=== PATIENT | male | born 1990 | race American Indian/Alaskan Native ===

== ENCOUNTER 2019-02-22 16:13 | Emergency (ER) | payer SELFPAY ==
[2019-02-22 16:54] VITALS: BP 147/101
[2019-02-22 18:55] LABS: Bilirubin,Urine NEG (Negative); Blood,Urine NEG (Negative); Color,Urine Straw (Yellow); Protein,Urine <15 mg/dL mg/dL (Negative); Urobilinogen,Urine < 2.0 mg/dL (<2.0)
--- NOTE | 2019-02-22 20:50 | Emergency Department Report ---
ED Male HPI - General Chief complaint: Abdominal Pain Stated complaint: LT SIDE PAIN/POSSIBLE UTI Time Seen by Provider: 02/22/19 20:39 Source: patient Mode of arrival: Ambulatory Limitations: No Limitations - History of Present Illness Initial comments: 28-year-old male presents to ED for possible UTI. Patient states he has been taking alcohol more heavily over the last couple of months reports mild lower back pain, thinks he may have a UTI. Patient denies any abdominal pain, urinary frequency, dysuria or penile discharge. -: unknown Severity: mild Quality: aching Consistency: intermittent Improves with: none Worsens with: none denies: discharge, blood in urine, dysuria, fever, nausea/vomiting, incontinence - Related Data Previous Rx's Medication Instructions Recorded Last Taken Type Ibuprofen [Motrin] 600 mg PO Q8H PRN #60 tablet 09/25/14 Unknown Rx traMADoL [Ultram] 50 mg PO Q6HR PRN #20 tablet 09/25/14 Unknown Rx Naproxen [Naprosyn] 500 mg PO BID #20 tablet 02/22/19 Unknown Rx Allergies Allergy/AdvReac Type Severity Reaction Status Date / Time No Known Allergies Allergy Unverified 09/25/14 17:38 ED Review of Systems ROS: Stated complaint: LT SIDE PAIN/POSSIBLE UTI Other details as noted in HPI Comment: All other systems reviewed and negative Constitutional: denies: chills, fever Gastrointestinal: denies: abdominal pain, nausea, vomiting Genitourinary: denies: dysuria, frequency, hematuria, discharge, testicular pain Musculoskeletal: back pain ED Past Medical Hx - Past Medical History Previous Medical History?: No - Surgical History Past Surgical History?: No - Social History Smoking Status: Never Smoker - Medications Home Medications: Home Medications Medication Instructions Recorded Confirmed Last Taken Type Ibuprofen [Motrin] 600 mg PO Q8H PRN #60 tablet 09/25/14 Unknown Rx traMADoL [Ultram] 50 mg PO Q6HR PRN #20 tablet 09/25/14 Unknown Rx Naproxen [Naprosyn] 500 mg PO BID #20 tablet 02/22/19 Unknown Rx ED Physical Exam - General Limitations: No Limitations General appearance: alert, in no apparent distress - Head Head exam: Present: atraumatic, normocephalic - Eye Eye exam: Present: normal appearance - ENT ENT exam: Present: mucous membranes moist - Neck Neck exam: Present: normal inspection - Respiratory Respiratory exam: Present: normal lung sounds bilaterally. Absent: respiratory distress - Cardiovascular Cardiovascular Exam: Present: regular rate, normal rhythm - GI/Abdominal GI/Abdominal exam: Present: soft. Absent: distended, tenderness - Extremities Exam Extremities exam: Present: normal inspection - Back Exam Back exam: Present: normal inspection. Absent: CVA tenderness (R), CVA tenderness (L) - Neurological Exam Neurological exam: Present: alert, oriented X3 - Psychiatric Psychiatric exam: Present: normal affect, normal mood - Skin Skin exam: Present: warm, dry, intact, normal color. Absent: rash ED Course Vital Signs 02/22/19 16:52 Temperature 98.2 F Pulse Rate 99 H Respiratory 18 Rate Blood Pressure 147/101 O2 Sat by Pulse 100 Oximetry Critical care attestation.: If time is entered above; I have spent that time in minutes in the direct care of this critically ill patient, excluding procedure time. ED Disposition Clinical Impression: Back pain Disposition: DC-01 TO HOME OR SELFCARE Is pt being admited?: No Condition: Stable Instructions: Low Back Strain (ED) Prescriptions: Naproxen [Naprosyn] 500 mg PO BID #20 tablet Referrals: [facility] [Provider Group] - 3-5 Days Time of Disposition: 20:53
== END 2019-02-22 21:00 | disposition home or self-care (01) ==
LOC: ED 16:13
DX: M54.5 Low back pain (principal); Z79.1 Long term (current) use of non-steroidal anti-inflammatories (NSAID); Z79.899 Other long term (current) drug therapy
CPT/HCPCS: 81001; 99283

== ENCOUNTER 2021-05-30 18:14 | Emergency (ER) | payer SELFPAY ==
[2021-05-30 18:20] VITALS: BP 138/89
--- NOTE | 2021-05-30 19:35 | Emergency Department Report ---
ED General Adult HPI - General Chief complaint: Chest Pain Stated complaint: CHEST PAIN Source: patient Mode of arrival: Ambulatory Limitations: No Limitations - History of Present Illness Initial comments: 30-year-old male presents to the ED complaining of chest discomfort after eating chicken x1 day ago. Patient states that he feels as though something is stuck inside of his chest. Patient states taking Tums without any relief. Patient patient unable to describe pain states that he feels like something is "just stuck". Patient is alert and oriented x3. No acute distress noted. No ill appearance noted. Patient denies any nausea vomiting or diarrhea. Patient has no history. Onset/Timin -: days(s) Location: chest Radiation: non-radiation Consistency: intermittent Improves with: none Worsens with: medication Associated Symptoms: denies other symptoms Treatments Prior to Arrival: none - Related Data Previous Rx's Medication Instructions Recorded Last Taken Type Ibuprofen [Motrin] 600 mg PO Q8H PRN #60 tablet 09/25/14 Unknown Rx traMADoL [Ultram] 50 mg PO Q6HR PRN #20 tablet 09/25/14 Unknown Rx Naproxen [Naprosyn] 500 mg PO BID #20 tablet 02/22/19 Unknown Rx Allergies Allergy/AdvReac Type Severity Reaction Status Date / Time No Known Allergies Allergy Verified 05/30/21 18:20 ED Review of Systems ROS: Stated complaint: CHEST PAIN Other details as noted in HPI Constitutional: denies: chills, fever Eyes: denies: eye pain, eye discharge, vision change ENT: denies: ear pain, throat pain Respiratory: denies: cough, shortness of breath, wheezing Cardiovascular: chest pain. denies: palpitations Endocrine: no symptoms reported Gastrointestinal: denies: abdominal pain, nausea, diarrhea Genitourinary: denies: urgency, dysuria Musculoskeletal: denies: back pain, joint swelling, arthralgia Skin: denies: rash, lesions Neurological: denies: headache, weakness, paresthesias Psychiatric: denies: anxiety, depression Hematological/Lymphatic: denies: easy bleeding, easy bruising ED Past Medical Hx - Past Medical History Previous Medical History?: No - Surgical History Past Surgical History?: No - Social History Smoking Status: Never Smoker - Medications Home Medications: Home Medications Medication Instructions Recorded Confirmed Last Taken Type Ibuprofen [Motrin] 600 mg PO Q8H PRN #60 tablet 09/25/14 Unknown Rx traMADoL [Ultram] 50 mg PO Q6HR PRN #20 tablet 09/25/14 Unknown Rx Naproxen [Naprosyn] 500 mg PO BID #20 tablet 02/22/19 Unknown Rx ED Physical Exam - General Limitations: No Limitations General appearance: alert, in no apparent distress - Head Head exam: Present: atraumatic, normocephalic - Eye Eye exam: Present: normal appearance - ENT ENT exam: Present: mucous membranes moist - Neck Neck exam: Present: normal inspection - Respiratory Respiratory exam: Present: normal lung sounds bilaterally. Absent: respiratory distress - Cardiovascular Cardiovascular Exam: Present: regular rate, normal rhythm. Absent: systolic murmur, diastolic murmur, rubs, gallop - GI/Abdominal GI/Abdominal exam: Present: soft, normal bowel sounds - Rectal Rectal exam: Present: deferred - Extremities Exam Extremities exam: Present: normal inspection - Back Exam Back exam: Present: normal inspection - Neurological Exam Neurological exam: Present: alert, oriented X3 - Psychiatric Psychiatric exam: Present: normal affect, normal mood - Skin Skin exam: Present: warm, dry, intact, normal color. Absent: rash ED Course Vital Signs 05/30/21 18:18 Temperature 98.1 F Pulse Rate 65 Respiratory 18 Rate Blood Pressure 138/89 O2 Sat by Pulse 100 Oximetry ED Medical Decision Making - Radiology Data [address] [address] XRay Report Signed Patient: SHA SCHMIDT MR#: [id number] : 1990 Acct:[id number] Age/Sex: 30 / M ADM Date: 05/30/21 Loc: ED Attending Dr: Ordering Physician: COMFORT LUTZ Date of Service: 05/30/21 Procedure(s): XR chest routine 2V Accession Number(s): [id number] cc: COMFORT LUTZ Fluoro Time In Minutes: CHEST 2 VIEWS INDICATION / CLINICAL INFORMATION: chest pain. COMPARISON: 2 views of the chest from 09/25/2014. FINDINGS: SUPPORT DEVICES: None. HEART / MEDIASTINUM: No significant abnormality. LUNGS / PLEURA: No significant pulmonary abnormality. No significant pleural effusion. No pneumothorax. ADDITIONAL FINDINGS: No significant additional findings. IMPRESSION: 1. No acute abnormality of the chest. Signer Name: Ernie Monteiro MD Signed: 05/30/2021 7:44 PM Workstation Name: [id number] Transcribed By: MN Dictated By: Ernie Monteiro MD Electronically Authenticated By: Ernie Monteiro MD Signed Date/Time: 05/30/211943 DD/ 42 TD/TT: - Medical Decision Making 30-year-old male presents to the ED complaining of chest discomfort after eating chicken x1 day ago. Patient states that he feels as though something is stuck inside of his chest. Patient states taking Tums without any relief. Patient patient unable to describe pain states that he feels like something is "just stuck". Patient is alert and oriented x3. No acute distress noted. No ill appearance noted. Patient denies any nausea vomiting or diarrhea. Patient has no history. Physical examination unremarkable Rechecked the patient is resting quietly quietly and comfortable and feeling better. I discussed the results of diagnostic study, my clinical impression and the plan for further treatment with the patient. Patient agrees with plan and discharge at this present time. All question addressed. I have given the patient instruction regarding a diagnosis ,expectation ,follow- up and return precaution. I explained to the patient that emergent condition may arise and to return to the ED for new worsen and any new persisting condition. I have explained the importance of following up with the primary care physician or referral physician listed below has instructed. The patient verbalized understanding of discharge instruction. Critical care attestation.: If time is entered above; I have spent that time in minutes in the direct care of this critically ill patient, excluding procedure time. ED Disposition Clinical Impression: Atypical chest pain Disposition: 01 HOME / SELF CARE / HOMELESS Is pt being admited?: No Does the pt Need Aspirin: No Condition: Stable Instructions: Nonspecific Chest Pain, Adult Additional Instructions: Take [id number] Tylenol or Motrin for pain Return to the ED for any worsening symptoms Referrals: [facility] [Provider Group] - 3-5 Days Forms: Work/School Release Form(ED)
--- NOTE | 2021-05-30 19:48 | XRay Report ---
CHEST 2 VIEWS INDICATION / CLINICAL INFORMATION: chest pain. COMPARISON: 2 views of the chest from 09/25/2014. FINDINGS: SUPPORT DEVICES: None. HEART / MEDIASTINUM: No significant abnormality. LUNGS / PLEURA: No significant pulmonary abnormality. No significant pleural effusion. No pneumothora x. ADDITIONAL FINDINGS: No significant additional findings. IMPRESSION: 1. No acute abnormality of the chest. Signer Name: Ernie Monteiro MD Signed: 05/30/2021 7:44 PM Workstation Name: [id number]
--- NOTE | 2021-05-31 09:31 | Electrocardiograph Report ---
[facility] Test Date: 2021-05-30 Test Time: 18:59:23 Pat Name: SHA SCHMIDT Department: Room: Gender: M Credit Administrator: GP : 1990 Requested By: EMMIE LIN Order Number: [id number] Reading MD: Jaylen Tate Measurements Intervals Epes Rate: 62 P: 68 DE: 181 QRS: 79 QRSD: 91 T: 57 QT: 399 QTc: 406 Interpretive Statements Sinus rhythm ST elev, probable normal early repol pattern No previous ECG available for comparison Electronically Signed On 05-31-2021 9:31:05 EST by Jaylen Tate
== END 2021-05-30 20:17 | disposition home or self-care (01) ==
LOC: ED 18:14
DX: R07.89 Other chest pain (principal)
CPT/HCPCS: 71046; 93005; 93010; 99283